=== PATIENT | male | born 1955 | race Caucasian/White ===

== ENCOUNTER 2016-08-17 16:17 | Outpatient (CLI) | payer OTHER ==
[2015-05-29 13:35] VITALS: BP 129/84
[2016-08-17 17:10] LABS: BILIRUBIN,DIRECT 0.1 mg/dL (0.0-0.4)
== END 2016-08-17 16:20 ==
LOC: LAB 16:17
PROVIDERS: ATTEND Family Medicine
DX: B35.1 Tinea unguium (principal)
CPT/HCPCS: 36415; 80076

== ENCOUNTER 2017-10-20 12:14 | Emergency (ER) | payer OTHER ==
--- NOTE | 2017-10-20 13:36 | ED Physician Documentation ---
General Adult - HISTORIAN Historian: patient - HPI Stated Complaint: "Vertigo" Chief Complaint: Dizziness Additional Information: 61yo who developed some dizziness, associated with sudden movement of his head. Feels that his balance is off. No twirling, no nausea noted. Has some pressure feeling behind both eyes. Feels like pressure in sinus in the frontal area. No fever or chills . No tinnitus, hearing is OK. No previous pro blems noted. Onset: minutes Timing: still present - ROS CONST: denies: fever, chills - PAST HX Past History: other (panic disorder) Other History: none Surgeries/Procedures: other (vasectomy) Immunizations: referred to PCP Allergies/Adverse Reactions: Allergies Allergy/AdvReac Type Severity Reaction Status Date / Time No Known Allergies Allergy Verified 10/20/17 12:29 Home Medications: Ambulatory Orders Medication Instructions Recorded Tadalafil [Cialis] 10/20/17 - SOCIAL HX Smoking History: non-smoker (quit smoiking several months ago. ), chew Alcohol Use: rarely Drug Use: none - FAMILY HX Family History: No - VITAL SIGNS Vital Signs: Vital Signs Temp Pulse Resp BP Pulse Ox 98.1 F 68 18 143/77 99 10/20/17 12:15 10/20/17 12:15 10/20/17 12:15 10/20/17 12:15 10/20/17 12:15 - REVIEWED ASSESSMENTS Nursing Assessment Reviewed: Yes General Adult Physical Exam - PHYSICAL EXAM GENERAL APPEARANCE: mild distress EENT: eye inspection normal, ENT inspection normal, pharynx normal, TM's nml (hearing normal). No: TM erythema NECK: normal inspection, thyroid normal, supple. No: lymphadenopathy, stiff neck RESPIRATORY: no resp distress, chest non-tender, breath sounds normal. No: wheezes, rales, rhonchi CVS: reg rate & rhythm, heart sounds normal, equal pulses, no murmur ABDOMEN: soft, no organomegaly, normal bowel sounds, no abdominal bruit BACK: normal inspection SKIN: warm/dry, normal color EXTREMITIES: non-tender, normal range of motion, no evidence of injury, no edema NEURO: oriented X3, CN's nml as tested Discharge Clincal Impression: Labyrinthitis, acute Qualifiers: Laterality: unspecified laterality Qualified Code(s): H83.09 - Labyrinthitis, unspecified ear Referrals: Maddie Rodrigues MD [Primary Care Provider] - 2 Days Additional Instructions: Drink a lot of fluids Take Meclazine as directed, 25mg up to 4 times a day If not better in 5-7 days to follow up with your primary care provider Condition: Stable Disposition: 01 HOME, SELF-CARE Decision to Admit: NO Date of Decison to Admit: 10/20/17 Decision Time: 13:52
[2017-10-20 14:13] VITALS: BP 114/68
== END 2017-10-20 14:12 | disposition home or self-care (01) ==
LOC: ED 12:14
DX: H83.09 Labyrinthitis, unspecified ear (principal)
CPT/HCPCS: 99282